=== PATIENT | female | born 1970 ===

== ENCOUNTER 2017-02-28 17:08 | Emergency (ER) | payer OTHER ==
--- NOTE | 2017-02-28 19:13 | RAD ---
INDICATION: Left fourth digit injury COMPARISON: None TECHNIQUE: AP, lateral, and oblique views were obtained. FINDINGS: There is laceration about the distal fourth digit. There is no foreign body. There is no associated fracture. The articular relationships are maintained. IMPRESSION: SOFT TISSUE INJURY DISTAL FOURTH DIGIT
[2017-02-28] MEDS ORDERED: Cephalexin CAP* 500 MG PO ONE (19:48)
[2017-02-28] MEDS ORDERED: oxyCODONE/Acetamin 5/325 MG* TAB PO ONE (19:48)
--- NOTE | 2017-02-28 20:30 | ED ---
Bhanu Celaya Abhishek, scribed for Otilio Mayen on 02/28/17 at 2014 . Laceration/Wound HPI - HPI Summary HPI Summary: This patient is a 46 year old F [facility] by with a chief complaint of laceration on the 4th finger on the right hand since 1630 today. Pt stated that she smashed her left hand on a storm window. The patient rates the pain 0/10 in severity. Pain increases to severe pain when area is palpated. Symptoms aggravated by palpations. Symptoms alleviated by nothing. Patient reports bleeding from the 4th finger on the right hand. - History of Current Complaint Stated Complaint: RT FINGER INJURY Time Seen by Provider: 02/28/17 18:36 Hx Obtained From: Patient Mechanism of Injury: Sharp/Blunt Trauma Onset/Duration: Sudden Onset Aggravating: Other - palpations Alleviating: Nothing Timing: Constant Onset Severity: Severe Current Severity: None Pain Intensity: 0 Pain Scale Used: 0-10 Numeric Associated Signs & Symptoms: Pain - 4th finger on the right hand - Allergy/Home Medications Allergies/Adverse Reactions: Allergies Allergy/AdvReac Type Severity Reaction Status Date / Time No Known Allergies Allergy Verified 04/08/15 11:36 PMH/Surg Hx/FS Hx/Imm Hx Previously Healthy: Yes - Surgical History Surgery Procedure, Year, and Place: R hip surgery Infectious Disease History: No Infectious Disease History: Denies: History Other Infectious Disease, Traveled Outside the [place] in Last 30 Days - Family History Known Family History: Negative: Cardiac Disease, Diabetes - Social History Alcohol Use: None Substance Use Type: Reports: None Smoking Status (MU): Never Smoked Tobacco Review of Systems Constitutional: Negative Eyes: Negative ENT: Negative Cardiovascular: Negative Respiratory: Negative Gastrointestinal: Negative Genitourinary: Negative Positive: Other - 4th finger on the right hand pain Skin: Other - laceration on the 4th finger on the right hand (bleeding) Neurological: Negative Psychological: Normal All Other Systems Reviewed And Are Negative: Yes Physical Exam - Summary Physical Exam Summary: Appearance: Well appearing, no pain distress Skin: distal phalanx avulsion of skin in the right 4th finger plantar aspect. mild bleeding Head/face: normal Eyes: EOMI, PRIMO ENT: normal Neck: supple, non-tender Respiratory: CTA, breath sounds present Cardiovascular: RRR, pulses symmetrical Abdomen: non-tender, soft Bowel: present Musculoskeletal: normal, strength/ROM intact Neuro: normal, sensory motor intact, A&Ox3 Triage Information Reviewed: Yes Vital Signs On Initial Exam: Initial Vitals Temp Pulse Resp BP Pulse Ox 98.2 F 90 16 155/85 96 02/28/17 17:15 02/28/17 17:15 02/28/17 17:15 02/28/17 17:15 02/28/17 17:15 Vital Signs Reviewed: Yes Diagnostics - Vital Signs Vital Signs Temp Pulse Resp BP Pulse Ox 02/28/17 20:00 18 02/28/17 17:15 98.2 F 90 16 155/85 96 - Laboratory Lab Statement: Any lab studies that have been ordered have been reviewed, and results considered in the medical decision making process. Laceration Repair Course/Dx - Course Course Of Treatment: This patient is a 46 year old F presenting to [facility] accompanied by with a chief complaint of laceration since 1630 today. Pt stated that she smashed her left hand on a storm window. Patient reports bleeding from the 4th finger on the right hand. Hand X-ray reveals SOFT TISSUE INJURY DISTAL FOURTH DIGIT. Patient will be D/C with a Dx of a distal phalanx avulsion of skin in the right 4th finger. Pt is instructed to follow up with Dr. Lema by tomorrow. The patient is agreeable with this plan. - Differential Dx Differental Diagnoses: Avulsion, Fracture, Laceration - Clinical Impression Provider Diagnoses: Avulsion of skin of finger Discharge - Discharge Plan Condition: Stable Disposition: HOME Prescriptions: Cephalexin CAP* [Keflex CAP*] 500 mg PO TID #30 cap oxyCODONE/Acetamin 5/325 MG* [Percocet 5/325 TAB*] 1 tab PO Q8H PRN #12 tab MDD 3 PRN Reason: Pain Patient Education Materials: Skin Avulsion (ED) Referrals: Kain Lema MD [Medical Doctor] - (Follow up with Dr. Lema by tomorrow ( Call to schedule appointment as soon as possible)) Elham Ramos MD [Primary Care Provider] - The documentation as recorded by the Bhanu orr Abhishek accurately reflects the service I personally performed and the decisions made by , Otilio Mayen.
[2017-02-28 20:34] VITALS: BP 110/60
== END 2017-02-28 20:29 | disposition home or self-care (01) ==
LOC: ED 17:08
DX: S61.214A Laceration without foreign body of right ring finger without damage to nail, initial encounter (principal); W22.8XXA Striking against or struck by other objects, initial encounter; Y93.9 Activity, unspecified; Y92.9 Unspecified place or not applicable
CPT/HCPCS: 99282; A9270-GY